=== PATIENT | female | born 1970 | race Caucasian/White ===

== ENCOUNTER 2018-03-18 22:10 | Emergency (ER) | payer MEDICAID, MEDICARE ==
[2018-03-18] MEDS ORDERED: Albuterol-Ipratrop 3 mg / 0.5 (3 ml) UD ONE (22:21)
[2018-03-18 22:29] VITALS: RESP 18; TEMP 98
[2018-03-18] MEDS ORDERED: Albuterol-Ipratrop 3 mg / 0.5 (3 ml) UD INH STA (22:41)
--- NOTE | 2018-03-18 22:45 | C.PDOC ---
History Of Present Illness Patient reports vaginal itching and pain for the past 3 weeks, was seen at [facility] [place] when the symptoms began and given diflucan x1 tab without improvement. Patient complains of increased itching and pain, as well as vaginal swelling. Denies discharge. Denies having any unprotected sexual intercourse (had one sexual partner, her , but he ). Patient also reports that she has a history of diabetes and her glucose has been uncontrolled- in the 300's at home. She also reports history of asthma, with shortness of breath and wheezing in the past few days. Time Seen by Provider: 03/18/18 22:30 Chief Complaint (Nursing): Female Genitourinary Past Medical History Reviewed: Historical Data, Nursing Documentation, Vital Signs Vital Signs: Last Vital Signs Temp 98 F 03/18/18 22:20 Pulse 78 03/18/18 22:20 Resp 18 03/18/18 22:20 BP 138/93 H 03/18/18 22:20 Pulse Ox 97 03/18/18 22:20 - Medical History PMH: Asthma, HTN Surgical History: Appendectomy Family History: States: Unknown Family Hx - Social History Hx Alcohol Use: No Hx Substance Use: No - Immunization History Hx Tetanus Toxoid Vaccination: No Hx Influenza Vaccination: No Hx Pneumococcal Vaccination: No Review Of Systems Except As Marked, All Systems Reviewed And Found Negative. Constitutional: Negative for: Fever Cardiovascular: Negative for: Chest Pain Respiratory: Negative for: Cough, Shortness of Breath Gastrointestinal: Negative for: Nausea, Vomiting, Abdominal Pain, Diarrhea Genitourinary: Positive for: Other (vaginal itching/pain/swelling). Negative for: Dysuria, Vaginal Discharge, Vaginal Bleeding Neurological: Negative for: Altered Mental Status Physical Exam - Physical Exam Appears: Non-toxic, No Acute Distress Skin: Normal Color, Warm, Dry Head: Normacephalic Eye(s): bilateral: Normal Inspection Oral Mucosa: Moist Cardiovascular: Rhythm Regular Respiratory: No Rales, No Rhonchi, Wheezing (scattered) Gastrointestinal/Abdominal: Normal Exam Pelvic: No Normal External Exam, No Normal Speculum Exam (deferred secondary to vaginal swelling/pain), No Normal Bimanual Exam (deferred secondary to vaginal swelling/pain), Other (swelling and erythema of bilateral labia majora. Bilater al labia minora with multiple pinpoint white lesions with surrounding erythema, however lesions are not vesicular in nature) Extremity: Normal ROM Neurological/Psych: Oriented x3 Gait: Steady ED Course And Treatment - Laboratory Results Result Diagrams: 03/18/18 22:40 03/18/18 22:50 O2 Sat by Pulse Oximetry: 97 Medical Decision Making Medical Decision Making: Given vaginal findings, will re-treat for vulvovaginal candidiasis. Less likely is genital herpes, given that the patient's labial lesions are not vesicular, but given tenderness and surrounding erythema around each small white lesion, will also treat with acyclovir. Patient hyperglycemia, but no clinical evidence of DKA. No anion gap. Patient advised to remain compliant with diabetes medications. Patient improved after duoneb x2, states that albuterol inhaler at home has been helping with her asthma. Stable for discharge home. Disposition - Disposition Disposition: HOME/ ROUTINE Disposition Time: 23:23 Condition: STABLE Additional Instructions: JENARO SLAUGHTER, thank you for letting us take care of you today. Your provider was Judith Manriquez MD and you were treated for VAGINAL PAIN. The emergency medical care you received today was directed at your acute symptoms. If you were prescribed any medication, please fill it and take as directed. It may take several days for your symptoms to resolve. Return to the Emergency Department if your symptoms worsen, do not improve, or if you have any other problems. Please contact your doctor or call one of the physicians/clinics you have been referred to that are listed on the Patient Visit Information form that is inc luded in your discharge packet. Bring any paperwork you were given at discharge with you along with any medications you are taking to your follow up visit. Our treatment cannot replace ongoing medical care by a primary care provider outside of the emergency department. Thank you for allowing the [facility] team to be part of your care today. If you had an X-Ray or CT scan: A Radiologist will review the ED reading if any change in treatment is needed we will contact you. If you had a blood, urine, or wound culture: It will take several days for the results, if any change in treatment is needed we will contact you. If you had an STI test: It will take 48 hours for the results. Please call after 1 week if you have not heard back. Prescriptions: Fluconazole [Diflucan] 150 mg PO ONCE #1 tab valACYclovir [Valtrex] 1,000 mg PO BID #20 tab Instructions: Hyperglycemia, Adult (DC), Yeast Infection (DC), Vaginitis Forms: [facility] ([place]) - Clinical Impression Clinical Impression: Vaginitis, Hyperglycemia, Asthma exacerbation
[2018-03-18 22:52] LABS: BASO # 0.1 K/uL (0.0-0.2); BASO % 0.6 % (0.0-2.0); EOS # 0.6 K/uL (0.0-0.7); EOS % 4.6 % (0.0-4.0); HEMOGLOBIN 12.7 g/dL (11.0-16.0); LYMPH # 3.8 K/uL (1.0-4.3); LYMPH % 30.4 % (20.0-40.0); MEAN CORPUSCULAR HEMOGLOBIN 27.6 pg (27.0-31.0); MEAN CORPUSCULAR HGB CONC 32.8 g/dL (33.0-37.0); MEAN PLATELET VOLUME 8.5 fL (7.2-11.7); MONO # 0.7 K/uL (0.0-0.8); MONO % 5.6 % (0.0-10.0); NEUT # 7.4 K/uL (1.8-7.0); NEUT % 58.8 % (50.0-75.0); NRBC % 0.1 % (0.0-2.0); RBC 4.61 Mil/uL (3.80-5.20); RED CELL DISTRIBUTION WIDTH 12.7 % (11.5-14.5); WHITE BLOOD COUNT 12.6 K/uL (4.8-10.8)
[2018-03-18 23:19] LABS: BLOOD UREA NITROGEN 15 mg/dL (7-17); CALCIUM 10.2 mg/dl (8.6-10.4); GFR NON-AFRICAN AMERICAN > 60
[2018-03-18 23:28] VITALS: BP 126/73; PULSE 76; O2SAT 98
== END 2018-03-18 23:28 | disposition home or self-care (01) ==
LOC: C.ER 22:10
DX: N76.0 Acute vaginitis (principal); E11.65 Type 2 diabetes mellitus with hyperglycemia; J45.901 Unspecified asthma with (acute) exacerbation